=== PATIENT | male | born 2000 | race Caucasian/White ===

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

== ENCOUNTER 2021-03-06 10:02 | Emergency (ER) | payer BC ==
[~2021-03-06] VITALS: Ht 170.2 cm; Wt 65.9 kg
[2021-03-06] MEDS ORDERED: PEPCID 20MG TAB20 MG PO (10:26)
[2021-03-06] MEDS ORDERED: PERIACTIN 4MG TA4 MG PO (10:26)
[2021-03-06 10:27] VITALS: TEMP 98.4
[2021-03-06 11:21] LABS: BASO % 0.2 % (0.0-2.0); GRAN # 6.5 K/mm3 (1.4-6.5); GRAN % 75.2 % (42.2-75.2); HEMOGLOBIN 14.6 g/dl (12.5-16.1); LYMPH # 0.8 K/mm3 (1.2-3.4); LYMPH % 9.7 % (20.0-51.0); MEAN CELL VOLUME 85 fl (80.0-95.0); MEAN CORPUSCULAR HEMOGLOBIN 30 pg (26.0-32.0); MEAN CORPUSCULAR HGB CONC 36 g/dl (33.0-37.0); MEAN PLATELET VOLUME 9.7 fl (7.4-10.4); MONO # 1.3 K/mm3 (0.1-0.6); MONO % 14.6 % (1.7-9.3); PLATELET COUNT 129 K/mm3 (130-400); RED BLOOD COUNT 4.85 M/mm3 (4.20-5.60); REDCELL DISTRIBUTION WIDTH-CV 12.5 % (11.5-14.5)
[2021-03-06 11:30] LABS: ALBUMIN 4.3 gm/dL (3.5-5.0); CALCIUM 9.5 mg/dL (8.4-10.2); CREATININE, serum 0.96 mg/dL (0.72-1.25); POTASSIUM 4.2 mmol/L (3.5-4.5); TOTAL PROTEIN 7.4 gm/dL (6.2-8.1)
[2021-03-06] MEDS ORDERED: ZOFRAN ODT4 MG PO (11:41)
[2021-03-06 11:54] VITALS: BP 120/76; PULSE 92
== END 2021-03-06 11:54 | disposition home or self-care (01) ==
LOC: COL.ER 10:02
PROVIDERS: Physician Assistant
DX: J10.1 Influenza due to other identified influenza virus with other respiratory manifestations (principal); K21.9 Gastro-esophageal reflux disease without esophagitis; Z79.899 Other long term (current) drug therapy; Z20.822 Contact with and (suspected) exposure to COVID-19
CPT/HCPCS: J2405; J7030